=== PATIENT | male | born 1975 | race Caucasian/White ===

== ENCOUNTER 2025-01-28 05:45 | Emergency (ER) | payer MEDICAID ==
[~2025-01-28] VITALS: Ht 182.9 cm; Wt 72.7 kg
[2025-01-28] MEDS: ondansetron/PF 4mg/2ml inj IV ONE (06:52)
[2025-01-28] MEDS: normal saline 1000ml 1,000 ML IV ONE (06:57)
[2025-01-28] MEDS: ketorolac trometh 15mg/ml vial 15 MG/ML ML IV ONE (07:03)
--- NOTE | 2025-01-28 07:52 | RADIOLOGY REPORT ---
Indication: flank pain Technique: CT axial images of the abdomen and pelvis are obtained without contrast. Coronal and sagittal reformats were obtained. Radiation Dose Information: CTDI volume is 11 mGy. Dose-length product is 518 mGy*cm Comparison: None FINDINGS: There is limited interpretation of the abdomen and pelvis without administration of intravenous contrast. Lung bases demonstrate atelectasis. Adrenal glands, spleen, pancreas, liver unremarkable in shape. No CT evidence for cholelithiasis. Right kidney demonstrates moderate right hydroureteronephrosis secondary to a proximal to mid right ureteral calculus measuring 6 mm. Nonobstructing right renal calculi up to 2 mm. Left kidney demonstrates no hydronephrosis / nephrolithiasis. Small hiatal hernia. Stomach is partially distended. Small bowel loops are normal in caliber. Colonic diverticular disease. Moderate volume stool in the colon. Normal appendix. Abdominal aortic atherosclerotic disease. Bladder partially distended. Bladder wall thickening up to 8 mm. No free pelvic fluid. No inguinal lymphadenopathy. [id number] bilateral sacroiliac degenerative joint disease. IMPRESSION: Limited evaluation without contrast. Moderate right hydroureteronephrosis secondary to a proximal to mid right ureteral calculus measuring 6 mm. Nonobstructing right renal calculus measuring 2 mm. Small hiatal hernia. Colonic diverticular disease. Bladder wall thickening which can be secondary to cystitis, neurogenic bladder, outlet obstruction. Other findings as described.
[2025-01-28 08:11] LABS: MEAN PLATELET VOLUME 7.5 FL (7.4-10.4); RED CELL DISTRIBUTION WIDTH 12.6 % (11.5-14.5)
[2025-01-28 08:18] LABS: CREATININE 0.98 MG/DL (0.60-1.10); TOTAL CARBON DIOXIDE 29.8 MMOL/L (24-32); eCRCL 95 ML/MIN; eGFR 82 ML/MIN
[2025-01-28] MEDS ORDERED: HYDR-3965 PO (09:49)
--- NOTE | 2025-01-28 09:50 | Physician Documentation ---
History of Present Illness Chief Complaint: Flank Pain Stated Complaint: LOWER FLANK PAIN/THROWING UP Time Seen by MD: 06:34 Primary Medical Doctor: NONE Mode of Arrival: Dropped Off HPI 50 year old male with severe R flank pain starting this morning, radiating to groin. Denies fever, cough, chest pain. +nausea. Medication Reconciliation Allergies: Coded Allergies: No Known Allergies (Unverified , 11/30/23) Past Medical History Past Medical History: No Pertinent History Past Surgical History: no surgical history Patient History: (CAD) Coronary arteriosclerosis FAMILY/OTHER (DM Type 2) Diabetes mellitus type 2 FAMILY/OTHER Hypercholesterolemia FAMILY/OTHER Alcohol Use: None Drug Use: none Lives with: Family Lives In: Home Occupation: employed Review of Systems All Other Systems at this time: Reviewed and Negative Physical Exam Vital Signs: RN Vital Signs have been reviewed: Yes, Temperature: 97.6, Source: Temporal, Heart Rate: 60, Respiratory Rate: 18, BP: 97/51, Pulse Oximetry: 98, Weight: 72.700 Physical Exam Gen: no distress HEENT: PERRL, EOMI Pulm: no distress CV: deferred Abd: soft, nontender, nondistended MSK: no deformity Skin: w/d/i Psych: unremarkable Progress Results/Orders Results/Orders Orders - CIERRA WILSON MD Ct Abdomen Pelvis (01/28/25 06:44) Completed Orders - CIERRA WILSON MD Ketorolac Trometh 15mg/Ml Vial (Toradol (01/28/25 06:40) Hydromorphone 1 Mg/Ml/Pf (Dilaudid Inj.) (01/28/25 06:40) Normal Saline 1000ml (0.9% Sodium Chlori (01/28/25 06:40) Ct Abdomen Pelvis (01/28/25 06:44) Medications Received in ER Medications (Trade) Dose Ordered Sig/Estefany Route PRN Reason Start Time Stop Time Status Last Admin Dose Admin (Toradol injection) 30 mg ONCE ONCE IV 01/28/25 06:40 01/28/25 06:41 DC 01/28/25 07:03 30 MG (Dilaudid inj.) 1 mg ONCE ONCE IV 01/28/25 06:40 01/28/25 06:41 DC 01/28/25 06:56 1 MG Sodium Chloride 1,000 ml @ 1,000 mls/hr ONCE ONCE IV 01/28/25 06:40 01/28/25 07:39 DC 01/28/25 06:57 1,000 MLS/HR (Zofran 4mg/2ml vial) 4 mg ONCE ONCE IV 01/28/25 06:50 01/28/25 06:51 DC 01/28/25 06:52 4 MG Vital Signs 01/28/25 01/28/25 01/28/25 01/28/25 05:49 06:39 06:56 07:03 Temp 97.6 Pulse 82 Resp 18 14 14 B/P (MAP) 128/70 Pulse Ox 96 01/28/25 01/28/25 01/28/25 01/28/25 07:10 07:56 07:56 08:24 Temp 97.6 Pulse 64 60 Resp 14 17 17 18 B/P (MAP) 135/77 (96) 101/53 (69) Pulse Ox 98 97 01/28/25 08:27 Temp 97.6 Pulse 60 Resp 18 B/P (MAP) 97/51 (66) Pulse Ox 98 Laboratory Tests Test 01/28/25 07:42 White Blood Count 11.4 H Red Blood Count 4.73 Hemoglobin 14.4 Hematocrit 41.9 L Mean Corpuscular Volume 88.6 Mean Corpuscular Hemoglobin 30.5 Mean Corpuscular Hemoglobin Concent 34.4 Red Cell Distribution Width 12.6 Platelet Count 242 Mean Platelet Volume 7.5 Neutrophils (%) (Auto) 85.8 H Lymphocytes (%) (Auto) 8.7 L Monocytes (%) (Auto) 4.4 Eosinophils (%) (Auto) 0.8 Basophils (%) (Auto) 0.3 Neutrophils # (Auto) 9.8 H Lymphocytes # (Auto) 1.0 L Monocytes # (Auto) 0.5 Eosinophils # (Auto) 0.1 Basophils # (Auto) 0.0 CBC Comment Sodium Level 141 Potassium Level 4.3 Chloride Level 106 Carbon Dioxide Level 29.8 Anion Gap 5 L Blood Urea Nitrogen 13 Creatinine 0.98 Estimated GFR/1.73 m2 82 BUN/Creatinine Ratio 13.3 Glucose Level 132 H Calcium Level 7.9 L Total Bilirubin 0.5 Aspartate Amino Transf (AST/SGOT) 17 Alanine Aminotransferase (ALT/SGPT) 22 Alkaline Phosphatase 74 Total Protein 6.7 Albumin 3.4 Globulin 3.3 Albumin/Globulin Ratio 1.0 L Lipase 26 Chemistry Comments Medical Decision Making Additional information obtaine: family Findings 50 year old male with R flank / R groin pain, likely stone, confirmed on CT interpreted by me which demonstrated a R sided kidney stone in the ureter at ~4- 5mm in size. IVF and meds, improved, counseled, reassured, will discharge with return precautions. Differential Dx:Considerations: Other Additional Comments Ddx = UTI, pyelonephritis, kidney stone, appendicitis Departure Disposition: 01 HOME / SELF CARE / HOMELESS Impression: Primary Impression: Kidney stone Condition: Stable Discharge Instructions: Kidney Stones Referrals: NO PRIMARY CARE PROVIDER (PCP) Prescriptions Hydrocodone Bit/Acetaminophen 5/325 MG ([place] 5/325 MG) 5 Mg/325 Mg Tablet 1-2 TAB PO Q4-6 hours PRN for pain, #16 TAB Prov: CIERRA WILSON MD 01/28/25 Education Educated: Patient, Family Educated regarding: diagnosis, treatment, prognosis, need for follow up Signature Scribe Signature: . Attestation: . CIERRA WILSON MD Jan 28, 2025 09:50
[2025-01-28 10:00] VITALS: BP 104/54; PULSE 60; RESP 16; TEMP 98; O2SAT 97
== END 2025-01-28 10:02 | disposition home or self-care (01) ==
LOC: ER 05:46
DX: N20.0 Calculus of kidney (principal); I25.10 Atherosclerotic heart disease of native coronary artery without angina pectoris
CPT/HCPCS: 36415; 74176; 80053; 83690; 85025; 96361; 96374; 96375; 99285; J1171; J1885; J2405; J7030